=== PATIENT | female | born 1995 | race Two or more races ===

== ENCOUNTER 2023-01-25 13:16 | Inpatient (IN) | payer OTHER ==
[~2023-01-25] VITALS: Ht 162.6 cm; Wt 82.1 kg
[2023-01-25] MEDS ORDERED: PRENATAL TABLE1 EAC1 PO (13:38)
[2023-01-25] MEDS ORDERED: SYNTHROID88 MCG PO (13:38)
== END 2023-01-27 13:42 | disposition home or self-care (01) | DRG 807 ==
LOC: LDR 13:16 → OB/GYN 21:38
PROVIDERS: ADMIT Obstetrics & Gynecology; ATTEND Obstetrics & Gynecology
PROC: 10E0XZZ Delivery of Products of Conception, External Approach (ICD-10-PCS; principal; 2023-01-25)
PROC: 4A1HXCZ Monitoring of Products of Conception, Cardiac Rate, External Approach (ICD-10-PCS; 2023-01-25)
DX: O42.02 Full-term premature rupture of membranes, onset of labor within 24 hours of rupture (principal); Z37.0 Single live birth; Z3A.38 38 weeks gestation of pregnancy; Z20.822 Contact with and (suspected) exposure to COVID-19